=== PATIENT | male | born 1985 | race Two or more races ===

== ENCOUNTER 2019-09-16 10:07 | Emergency (ER) | payer OTHER ==
[~2019-09-16] VITALS: Ht 170.2 cm; Wt 121.6 kg
[2019-09-16 10:18] VITALS: BP 102/72
--- NOTE | 2019-09-16 10:43 | NUR ---
PT MEDICALLY CLEARED FOR BOOKING. D/C TO PD IN STABLE CONDITION.
== END 2019-09-16 10:45 ==
LOC: ER 10:13
DX: R68.89 Other general symptoms and signs (principal)